=== PATIENT | female | born 1980 | race Caucasian/White ===

== ENCOUNTER 2018-10-16 11:00 | Emergency (ER) | payer BC, SELFPAY ==
[2018-10-16 11:01] VITALS: BP 148/88; PULSE 84; RESP 16; TEMP 36.7; O2SAT 99; BMI 23.8
[2018-10-16 11:35] LABS: Absolute Lymphocyte Count 2.35 X10^3/uL (0.83-4.51); Absolute Neutrophil Count 3.9 X10^3/uL (2.0-7.7); Basophil# 0.04 X10^3/uL; Basophil% 0.6 % (0-1); Eosinophil# 0.08 X10^3/uL; Eosinophils% 1.2 % (0-5); Hematocrit 40.3 % (37-47); Hemoglobin 13.5 g/dL (12.0-15.0); Lymphocyte # 2.35 X10^3/ul (4.0); Lymphocyte % 34.5 % (19-41); Mean Corp Hgb Conc 33.5 g/dL (32-36); Mean Corpuscular Hgb 29.9 pg (27.0-32.0); Mean Corpuscular Volume 89.2 fL (81-99); Monocyte# 0.45 X10^3/uL; Monocyte% 6.6 % (0-10); NRBC Flagged by Analyzer 0 % (0-5); Neutrophil # 3.89 X10^3/uL (2.7-7.7); Platelet Count 259 K/mm3 (150-450); RBC Distribution Width SD 42.5 fl (35.1-43.9); Red Blood Count 4.52 M/mm3 (4.2-5.4); White Blood Count 6.8 K/mm3 (4.4-11.0)
[2018-10-16 12:02] LABS: Anion Gap 5 (5-15); BUN 15 mg/dL (7-18); BUN/Creat Ratio 19.5 RATIO (10-20); Calcium,Total 9.1 mg/dL (8.5-10.1); Chloride 105 mmol/L (98-107); Creatinine, Serum 0.77 mg/dL (0.55-1.02); EST Glomerular Filtration Rate 88 mL/min (>60); Est Glom Filt Rate - Afr Amer 107 mL/min (>60); Estimated Creatinine Clearance 77.58 ml/min; Glucose 105 mg/dL (74-106); Potassium 3.1 mmol/L (3.5-5.1); Sodium Level 139 mmol/L (136-145)
--- NOTE | 2018-10-16 12:19 | ED.VIS.GEN ---
History of Present Illness Chief Complaint: Abd Pain Informant: Patient Onset: Yesterday Context: Sudden Onset Timing: Continuous Quality: Diarrhea, abdominal pain and black stool x1 Location: Not applicable Current Severity: Mild Maximum Severity: Severe Worsened by: Symptoms started 30 minutes after eating sandwich Relieved by: Nothing Associated Symptoms: Lightheadedness and black stool Narrative: Patient is a 38-year-old woman who developed diarrhea after eating a sandwich. Onset 30 minutes after she ate sandwich. No one else had sandwich. She denies fever, chills night sweats. She complains of dry mouth, thirst and orthostatic symptoms. She has not vomited. She has not had a loose stool since last evening. She was concerned because she had a black stool. She has not taken any Pepto-Bismol or Kaopectate. She does report decreased urine output. She is on no antiplatelet or anticoagulant. She has no history of bruising easily. She denies rash. Prior similar symptoms: No Recent Illness/Hospitalization: No - Past Medical History (1) No significant past medical history Status: Acute Past Medical History - Allergies and Home Meds Allergies/Adverse Reactions: Allergies No Known Allergies Allergy (Verified 10/16/18 11:00) Primary Care Physician: Care Physician,No Primary [Primary Care Provider] - Prior records reviewed: Yes Past Medical History: None Surgical History: noncontributory Lives: Spouse/ Significant Other, With Family Smoking Status: Former smoker Alcohol: Rare Drugs: None Review of Systems General: Reports: Malaise. Denies: Chills, Fever, Sweats Eyes: Denies: Visual changes - bilaterally, Diplopia ENT: Denies: Rhinorrhea, Sore throat Cardiovascular: Denies: Chest pain, Palpitations Respiratory: Denies: Dyspnea, Cough, Dyspnea on exertion Gastrointestinal: Reports: Abdominal pain, Nausea, Diarrhea, Melena. Denies: Vomiting, Constipation, Hematochezia, -, - Genitourinary: Denies: Dysuria, Hematuria, Frequency Musculoskeletal: Denies: Myalgias, Arthralgias, Neck pain, Back pain, Swelling, Extremity Pain Skin: Denies: Rash, Wounds Neurological: Denies: Headache, Weakness, Parasthesia, Numbness Allergy: Denies: Uticaria, Swelling of the mouth, Swelling of the tongue Physical Exam Vital Signs/Narrative: Vital Signs Temp Pulse Resp BP Pulse Ox 10/16/18 11:01 98.1 F 84 16 148/88 H 99 Inital Vital Signs reviewed: Yes General: Well nourished, Well developed, No Acute Distress Head: Normocephalic, Atraumatic Eyes: Perrl, EOMI ENT: No rhinorrhea, TM's clear, Dry mucous membranes Neck: Supple, Nontender Cardiovascular: Regular rate, Regular rhythm, No murmurs Respiratory: No distress, CTA bilaterally, Chest nontender Abdomen: Soft, Nontender, Nondistended, Normal bowel sounds Rectal: Guaiac negative - Stool was dark black-green. Back: Nontender, Normal Inspection Extremities: Nontender, No edema Skin: Normal color, No rash Neurological: Alert, Oriented x3, Cranial nerves II-XII grossly intact, Normal Strength, Normal Sensation Psychological: Normal affect, Normal Mood Diagnostic/Tx/Re-eval 10/16/18 11:14 Stool Stool Occult Blood (GENO) - Final Laboratory Results 10/16/18 10/16/18 11:23 11:23 WBC 6.8 RBC 4.52 Hgb 13.5 Hct 40.3 MCV 89.2 MCH 29.9 MCHC 33.5 RDW Std Deviation 42.5 RDW Coeff of Nirav 13.0 Plt Count 259 MPV 10.0 Immature Gran % (Auto) 0.100 Neut % (Auto) 57.0 Lymph % (Auto) 34.5 [place] % (Auto) 6.6 Eos % (Auto) 1.2 Baso % (Auto) 0.6 Absolute Neuts (auto) 3.9 Absolute Lymphs (auto) 2.35 Nucleated RBC % 0 Sodium 139 Potassium 3.1 L Chloride 105 Carbon Dioxide 29.0 Anion Gap 5 BUN 15 Creatinine 0.77 Estim Creat Clear Calc 77.58 Est GFR (MDRD) Af Amer 107 Est GFR (MDRD) Non-Af 88 BUN/Creatinine Ratio 19.5 Glucose 105 Calcium 9.1 Kalemia secondary to diarrhea. No evidence of acute kidney injury. - Medical Decision Making Likely patient is dehydrated. Because she reported black stool stool was sent for Hemoccult testing. Hemoccult testing was negative. Only abnormality is potassium 3.1, which is due to the diarrhea. Patient feels better after fluids. ED Disposition - Plan for ED Patient: Disposition: Home or Assisted Living Diagnosis: Diarrhea, Hypokalemia due to excessive gastrointestinal loss of potassium Instructions: VOMITING AND DIARRHEA, Nonspecific (Adult) Referrals: Care Physician,No Primary [Primary Care Provider] - Jacqueline Hernandez, [STAFF PHYSICIAN] - 3-5 Days if not improving Additional Instructions: Since you do not have a primary care physician you were assigned to Dr. Jacqueline Hernandez.
[2018-10-16 12:33] VITALS: PULSE 71; RESP 18; O2SAT 100
== END 2018-10-16 12:36 | disposition home or self-care (01) ==
PROVIDERS: Emergency Provider Emergency Medicine
DX: R19.7 Diarrhea, unspecified (principal); E87.6 Hypokalemia; Z87.891 Personal history of nicotine dependence
CPT/HCPCS: 80048; 82274; 85025; 99283

== ENCOUNTER 2019-12-02 09:33 | Emergency (ER) | payer BC, MEDICAID, SELFPAY ==
[2019-12-02 09:34] VITALS: BP 129/89; PULSE 105; RESP 17; TEMP 36.3; O2SAT 98; BMI 23.6
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
[2019-12-02] MEDS: Albuterol 2.5 MG/3 ML VIAL.NEB. INHALATION (09:52)
[2019-12-02 09:53] VITALS: PULSE 98; RESP 20
[2019-12-02] MEDS: Ketorolac 30 MG/ML Syringe IM (10:52)
[2019-12-02] MEDS: Ondansetron ODT 4 MG Tablet PO (10:52)
[2019-12-02 10:58] VITALS: PULSE 88; RESP 16; O2SAT 99
[2019-12-02 10:59] VITALS: O2SAT 99
[2019-12-02 12:39] VITALS: PULSE 74; RESP 20; O2SAT 97
--- NOTE | 2019-12-02 12:40 | ED.RN ---
THIS NURSE REVIEWED D/C INSTRUCTIONS WITH PT . PT VERBALIZED UNDERSTANDING OF INSTRUCTIONS. PT DENIES FURTHER NEEDS OR QUESTIONS AT THIS TIME. PT AMBULATES FROM ROOM ON OWN WITHOUT ASSISTANCE FROM STAFF
== END 2019-12-02 12:41 | disposition home or self-care (01) ==
PROVIDERS: Emergency Provider Emergency Medicine
DX: T54.91XA Toxic effect of unspecified corrosive substance, accidental (unintentional), initial encounter (principal); R05 Cough; R06.02 Shortness of breath; R51.9 Headache, unspecified
CPT/HCPCS: 36415; 80048; 82670; 83001; 83002; 84439; 84443; 85027; 94640; 96372; 99284

== ENCOUNTER → 2020-06-16 13:36 | Outpatient (CLI) | payer BC, MEDICAID, SELFPAY ==
[2020-06-16 15:00] LABS: Hematocrit 41.7 % (37-47); Hemoglobin 13.6 g/dL (12.0-15.0); Mean Corp Hgb Conc 32.6 g/dL (32-36); Mean Corpuscular Hgb 29.7 pg (27.0-32.0); Mean Platelet Vol. 10.3 fl (6.2-12.0); Platelet Count 304 K/mm3 (150-450); RBC Distribution Width CV 12.9 % (11.6-14.6); RBC Distribution Width SD 42.4 fl (35.1-43.9); Red Blood Count 4.58 M/mm3 (4.2-5.4); White Blood Count 6.1 K/mm3 (4.4-11.0)
[2020-06-16 15:20] LABS: Anion Gap 5 (5-15); BUN 14 mg/dL (7-18); BUN/Creat Ratio 18.3 RATIO (10-20); Chloride 103 mmol/L (98-107); Creatinine, Serum 0.76 mg/dL (0.55-1.02); EST Glomerular Filtration Rate 89 mL/min (>60); Est Glom Filt Rate - Afr Amer 107 mL/min (>60); Estradiol 14.5 pg/mL; Follicle Stimulating Hormone 85.1 mIU/mL; Glucose 87 mg/dL (74-106); Luteinizing Hormone 23.8 mIU/mL; Potassium 3.5 mmol/L (3.5-5.1); Sodium Level 136 mmol/L (136-145); Thyroid Stim Hormone (TSH) 1.42 uIU/mL (0.358-3.74)
== END ==
PROVIDERS: Visit Provider Obstetrics & Gynecology
DX: N95.1 Menopausal and female climacteric states (principal)
CPT/HCPCS: 36415; 80048; 82670; 83001; 83002; 84439; 84443; 85027

== ENCOUNTER 2020-10-20 11:13 | Emergency (ER) | payer BC, MEDICAID, SELFPAY ==
[2020-10-20 11:14] VITALS: BP 160/86; PULSE 67; RESP 16; TEMP 37; O2SAT 94; BMI 28.3
--- NOTE | 2020-10-20 11:26 | EKG12_ITS ---
Test Reason : CP Blood Pressure : / mmHG Vent. Rate : 087 BPM Atrial Rate : 087 BPM P-R Int : 106 ms QRS Dur : 084 ms QT Int : 366 ms P-R-T Axes : 061 013 040 degrees QTc Int : 440 ms Sinus rhythm with short [place] Otherwise normal ECG Confirmed by AMILCAR JETT, HARINDER ([id number]), associate entertainment editor LIZABETH SHIPLEY ([id number]) on 10/23/2020 1:29:59 PM Referred By: RUPAL Confirmed By:ARGENIS FITZGERALD MD
--- NOTE | 2020-10-20 11:30 | EDS_ITS ---
HPI History of Present Illness Chief Complaint: Palpitations Informant: patient Onset/Context/Timing Onset: Days Context: Gradual Onset Timing: Intermittent Current Severity: Mild Maximum Severity: Mild Narrative Narrative: 40-year-old female history of autoimmune disease for which she is on no medications. States for last 2 to 3 days she has had intermittent palpitations. States 2 weeks ago she had low potassium. She denies any chest pain. Denies any fever or chills. Denies any shortness of breath. No leg pain or swelling. No hemoptysis. No recent travel, surgery or hospitalization. She has no known cardiac history. Prior similar symptoms: No Recent Illness/Hospitalization: No PFSH PFSH Medical History (Updated 10/20/20 @ 14:[address] Slim Todd MD) Rectocele Home Medications linaclotide [Linzess] mcg 10/20/20 [History Last Taken Unknown] Allergy/AdvReac Type Severity Reaction Status Date / Time No Known Allergies Allergy Verified 10/20/20 11:15 Family History (Updated 10/20/20 @ 11:38 by Alla Partida) Father CAD (coronary artery disease) Surgical History (Updated 10/20/20 @ 11:39 by Alla Partida) H/O partial thyroidectomy H/O: hysterectomy Hx of cholecystectomy Social History (Updated 10/20/20 @ 11:40 by Alla Partida) Smoking Status: Former smoker smoking status stop date: 08/20/13 ROS ROS ED ROS Narrative Denies recent illness. Review of Systems ROS Unobtainable: Denies due to encephalopathy Constitutional Constitutional ED: Denies fever(s) or subjective Eyes Eyes: Denies change in vision ENT ENT ED: Denies ear pain or sore throat Cardiovascular Cardiovascular: Reports palpitations; Denies chest pain Respiratory/Chest Respiratory/Chest: Denies cough or dyspnea Gastrointestinal Gastrointestinal: Denies abdominal pain, constipation, diarrhea, melena, nausea or vomiting Genitourinary Genitourinary ED: Denies dysuria or hematuria Musculoskeletal Musculoskeletal: Denies myalgias Integumentary Denies rash Neurologic Neurologic: Denies headache(s) Psychiatric Psychiatric: Denies depression Endocrine Endocrinology: Denies polyuria Allergic/Immunologic Allergic/Immunologic ED: Denies urticaria EXAM Physical Exam Narrative Exam Narrative: Well-appearing middle-aged female. Vital signs are stable afebrile. Pulse ox 94% on room air no hypoxia. H EENT exam unremarkable. Neck nontender no lymphadenopathy. No thyromegaly. Lungs clear to auscultation bilaterally. Heart regular rhythm rate about 70 no murmur. Abdomen soft nontender normal bowel sounds no peritoneal signs. Moving all 4 extremities. Calves nontender no edema or cords. Back nontender. Skin unremarkable. Neurologically she is awake and alert with no focal motor deficits. Normal exam. Const Vital Signs: 10/20/20 11:14 10/20/20 11:37 10/20/20 13:06 Temperature 98.6 F Temperature Source Temporal Pulse Rate 67 86 Respiratory Rate 16 22 H Respiratory Effort Normal Blood Pressure 160/86 H 129/88 H Blood Pressure Mean 110 101 Pulse Ox 94 98 Oxygen Delivery Method Room Air Positive well nourished and well developed; Negative for obese, cachectic, contractures or unkempt General Appearance ED: well developed and NAD; Negative for unkempt, cachectic or contractures Nutritional Appearance: Negative for cachectic or obese HEENT Reports moist mucous membranes Negative for trauma or tenderness Eyes PERRL and EOMs intact bilaterally Neck no lymphadenopathy, supple and no JVD General: Negative for tenderness Chest Wall inspection of chest normal and palpation of chest normal Resp normal respiratory effort and clear to auscultation bilaterally Cardio regular rate, regular rhythm, S1 normal heart sound, S2 normal heart sound and no murmurs GI normal to inspection, nondistended, normoactive bowel sounds, non-tender and non-distended Palpation: soft Back/Spine no CVA tenderness General Back: Negative for CVA tenderness Extremity normal to inspection General Extremety ED: Negative for edema or tenderness General Extremity: Negative for edema Neuro oriented x3, CN's II-XII intact bilaterally and No no sensory deficits noted Sensorium / Orientation: alert; Negative for orientation impaired, lethargic or stuporous Motor Exam: strength 5/5 throughout Psych mental status grossly normal Appearance: Negative for unkempt Attitude: No agitated Mood & Affect: Negative for depressed or tearful Skin no rashes or lesions noted and no wounds MDM MDM MDM Narrative Medical decision making narrative: 40-year-old female history of partial thyroid resection in the past. States she has had her thyroid checked in the last several months it was unremarkable. With palpitations. Currently has a completely normal exam with a heart rate in the 60-80 range. Repeat exam patient is doing well at 2:05 PM. She has had no further symptoms she will be discharged home with outpatient follow-up. Lab Data Attestation: I reviewed the patient's lab results. Lab results narrative: CBC shows a white 11.5. Hemoglobin 15. Electrolytes unremarkable gap of 5. Normal creatinine. Normal troponin of 4 and TSH of 2.47. Portable 1 view chest x-ray normal with normal cardiac silhouette interpreted by myself. Labs: Laboratory Results - last 24 hr 10/20/20 10/20/20 11:20 11:20 WBC 11.5 H RBC 5.16 Hgb 15.7 H Hct 47.4 H MCV 91.9 MCH 30.4 MCHC 33.1 RDW Std Deviation 45.4 H RDW Coeff of Nirav 13.6 Plt Count 429 MPV 10.2 Immature Gran % (Auto) 0.800 Neut % (Auto) 68.8 Lymph % (Auto) 24.4 [place] % (Auto) 5.4 Eos % (Auto) 0.3 Baso % (Auto) 0.3 Absolute Neuts (auto) 7.9 H Absolute Lymphs (auto) 2.80 Nucleated RBC % 0 Sodium 136 Potassium 4.1 Chloride 102 Carbon Dioxide 29.0 Anion Gap 5 BUN 15 Creatinine 0.76 Estim Creat Clear Calc 73.51 Est GFR (MDRD) Af Amer 108 Est GFR (MDRD) Non-Af 90 BUN/Creatinine Ratio 19.8 Glucose 106 Calcium 9.6 Troponin I High Sens 4 TSH 2.47 Radiography Chest X-Ray - ED: 1 View, Read by ED Physician, Read by Radiologist, Heart, Lung s, Mediastinum, Bony Structures and No Acute Disease Diagnostic Testing: Radiology Impression Chest X-Ray 10/20/20 11:45 IMPRESSION: Hyperinflation. The lungs are clear. Electronically Signed: Arnaldo Moore MD at 12:12 EDT , Service support , Rhythm Strip Rhythm Strip: Sinus Rhythm Rate: 87 Ectopy: None EKG Initial EKG: Attestation: I personally reviewed and interpreted this EKG as follows: Interpretation: Sinus Rhythm and No Acute Injury Pattern Comments: Normal sinus rhythm rate of 87 no acute signs of OH or ischemia. No dysrhythmia. Prior EKG tracings: not available for review Discharge Plan Triage Chief Complaint: Palpitations ED Provider: Slim Todd Dx/Rx/DC Orders Clinical Impression: Heart palpitations Instructions: ED Palpitations Prescriptions: No Action Linzess 290 mcg capsule RF: 0 Primary Care Provider: Reyna Eldridge Referrals: Reyna Eldridge MD [Primary Care Provider] - 1 Week if not improving Activity Restrictions/Additional Instructions: Your test and exam today were normal. Follow-up with your doctor as needed. Disposition Disposition: Home, Self Care
[2020-10-20 11:36] LABS: Absolute Neutrophil Count 7.9 X10^3/uL (2.0-7.7); Basophil# 0.04 X10^3/uL; Basophil% 0.3 % (0-1); Eosinophil# 0.03 X10^3/uL; Eosinophils% 0.3 % (0-5); Hematocrit 47.4 % (37-47); Hemoglobin 15.7 g/dL (12.0-15.0); Lymphocyte % 24.4 % (19-41); Mean Corp Hgb Conc 33.1 g/dL (32-36); Mean Corpuscular Hgb 30.4 pg (27.0-32.0); Mean Corpuscular Volume 91.9 fL (81-99); Mean Platelet Vol. 10.2 fl (6.2-12.0); Monocyte# 0.62 X10^3/uL; Monocyte% 5.4 % (0-10); NRBC Flagged by Analyzer 0 % (0-5); Neutrophil # 7.88 X10^3/uL (2.7-7.7); Neutrophil % 68.8 % (47-70); Platelet Count 429 K/mm3 (150-450); RBC Distribution Width CV 13.6 % (11.6-14.6); RBC Distribution Width SD 45.4 fl (35.1-43.9); Red Blood Count 5.16 M/mm3 (4.2-5.4); White Blood Count 11.5 K/mm3 (4.4-11.0)
--- NOTE | 2020-10-20 11:45 | RAD_ITS ---
STUDY: X-RAY CHEST REASON FOR EXAM: Female, 40 years old. Chest pain TECHNIQUE: Single AP portable view of the chest. COMPARISON: None. FINDINGS: EKG electrode are seen. Hyperinflation. Scattered calcified granulomas. The lungs are clear. There is no demonstrated pleural abnormality. Normal size heart. Normal mediastinum and gerhard. Normal visualized pulmonary arteries. Normal visualized aortic arch and descending thoracic aorta. Normal visualized thoracic spine. Normal visualized ribs, clavicles, and shoulders. There is no demonstrated abnormality of the visualized soft tissue structures of the upper abdomen. RAD/Chest 1 View (Portable) IMPRESSION: Hyperinflation. The lungs are clear. Electronically Signed: Arnaldo Moore MD at 12:12 EDT , Service support ,
[2020-10-20 11:59] LABS: Anion Gap 5 (5-15); BUN 15 mg/dL (7-18); BUN/Creat Ratio 19.8 RATIO (10-20); Calcium,Total 9.6 mg/dL (8.5-10.1); Chloride 102 mmol/L (98-107); Creatinine, Serum 0.76 mg/dL (0.55-1.02); EST Glomerular Filtration Rate 90 mL/min (>60); Est Glom Filt Rate - Afr Amer 108 mL/min (>60); Estimated Creatinine Clearance 73.51 ml/min; Glucose 106 mg/dL (74-106); Potassium 4.1 mmol/L (3.5-5.1); Sodium Level 136 mmol/L (136-145); Thyroid Stim Hormone (TSH) 2.47 uIU/mL (0.358-3.74); Troponin-I HS 4 pg/mL (3.0-54.0)
[2020-10-20 13:06] VITALS: BP 129/88; PULSE 86; RESP 22; O2SAT 98
[2020-10-20 14:21] VITALS: PULSE 79
== END 2020-10-20 14:22 | disposition home or self-care (01) ==
PROVIDERS: Emergency Provider Emergency Medicine; PCP Internal Medicine
DX: R00.2 Palpitations (principal); Z87.891 Personal history of nicotine dependence
CPT/HCPCS: 71045; 80048; 84443; 84484; 85025; 93005; 99284